=== PATIENT | female | born 2000 | race Caucasian/White ===

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

== ENCOUNTER → 2021-01-22 10:19 | Outpatient (CLI) | payer MEDICAID, SELFPAY ==
[2020-07-08 12:27] VITALS: BMI 33.7
--- NOTE | 2021-01-22 10:23 | RAD_ITS ---
STUDY: X-RAY - THORACIC SPINE REASON FOR EXAM: Female, 20 years old. PAIN TECHNIQUE: 2 view(s) of the thoracic spine were obtained. COMPARISON: None. FINDINGS: Normal kyphosis of the thoracic spine. There is no substantial scoliosis. Normal thoracic vertebrae and endplates. Normal disc space heights. There is no acute fracture. The soft tissue structures are unremarkable. RAD/Thoracic Spine 2 Views IMPRESSION: Normal x-ray examination of the thoracic spine. Electronically Signed: Seferino Ozuna MD at 17:19 EDT , Service support ,
--- NOTE | 2021-01-22 10:23 | RAD_ITS ---
STUDY: X-RAY - LUMBAR SPINE REASON FOR EXAM: Female, 20 years old. PAIN TECHNIQUE: 5 view(s) of the lumbar spine were obtained. COMPARISON: None FINDINGS: Normal lumbar lordosis. There is no substantial scoliosis. There is a normal alignment of the vertebrae. Normal vertebral bodies and endplates. There is partial sacralization of the left side of L5. Normal disc space heights. There is no demonstrated fracture. The soft tissue structures are unremarkable. RAD/L/S Spine Min 4 Views IMPRESSION: No fracture. Disc spaces are well-preserved. Electronically Signed: Seferino Ozuna MD at 17:23 EDT , Service support ,
[2021-01-22 12:54] LABS: Absolute Lymphocyte Count 1.62 X10^3/uL (0.83-4.51); Absolute Neutrophil Count 3.2 X10^3/uL (2.0-7.7); Basophil# 0.05 X10^3/uL; Basophil% 0.9 % (0-1); Eosinophil# 0.09 X10^3/uL; Eosinophils% 1.7 % (0-5); Hematocrit 42.8 % (37-47); Hemoglobin 14.3 g/dL (12.0-15.0); Lymphocyte # 1.62 X10^3/ul (0.83-4.51); Lymphocyte % 29.9 % (19-41); Mean Corp Hgb Conc 33.4 g/dL (32-36); Mean Corpuscular Hgb 29.6 pg (27.0-32.0); Mean Corpuscular Volume 88.6 fL (81-99); Mean Platelet Vol. 10.3 fl (6.2-12.0); Monocyte# 0.47 X10^3/uL; Monocyte% 8.7 % (0-10); NRBC Flagged by Analyzer 0 % (0-5); Neutrophil # 3.17 X10^3/uL (2.7-7.7); Neutrophil % 58.6 % (47-70); Platelet Count 252 K/mm3 (150-450); RBC Distribution Width CV 11.9 % (11.6-14.6); RBC Distribution Width SD 38.4 fl (35.1-43.9); Red Blood Count 4.83 M/mm3 (4.2-5.4); White Blood Count 5.4 K/mm3 (4.4-11.0)
[2021-01-22 13:22] LABS: ALB/GLOB Ratio 1.2 RATIO (0.9-2.4); AST(SGOT) 14 U/L (15-37); Alanine Aminotransfer ALT/SGPT 23 U/L (13-56); Albumin, Serum 4.1 g/dL (3.2-5.0); Alkaline Phosphatase 22 U/L (45-117); Anion Gap 9 (5-15); BUN 11 mg/dL (7-18); Calcium,Total 9.6 mg/dL (8.5-10.1); Chloride 106 mmol/L (98-107); Creatinine, Serum 0.85 mg/dL (0.55-1.02); EST Glomerular Filtration Rate 91 mL/min (>60); Est Glom Filt Rate - Afr Amer 110 mL/min (>60); Globulin 3.4 g/dL (2.2-4.2); Glucose 90 mg/dL (74-106); Magnesium 1.9 mg/dL (1.6-2.6); Potassium 4.1 mmol/L (3.5-5.1); Protein, Total 7.5 g/dL (6.4-8.2); Sodium Level 139 mmol/L (136-145)
== END ==
PROVIDERS: PCP Family Medicine; Referring Provider Family Medicine; Visit Provider Family Medicine
DX: M54.9 Dorsalgia, unspecified (principal); R19.7 Diarrhea, unspecified
CPT/HCPCS: 36415; 72070; 72110; 80053; 83735; 85025

== ENCOUNTER 2021-04-10 10:55 | Day surgery (SDC) | payer MEDICAID, SELFPAY ==
[2021-04-10 11:17] VITALS: BP 129/71; PULSE 84; RESP 14; TEMP 36.9; O2SAT 100; BMI 33.0
[2021-04-10 11:18] LABS: Internal QC Validated? YES +Cl - CLEAR BKGD; Pregnancy, Urine Negative Negative
[2021-04-10] MEDS: Lactated Ringers 1,000 ML 100 ML IV (11:23)
--- NOTE | 2021-04-10 12:00 | EGD_PTH ---
PATIENT: CLARISSA NOLASCO LOC: EN U#:[id number] AGE/SX: 20/F ROOM: RE04/10/[address]: Dr. Kelton Melton DO : 2000 BED: DIS: 04/10/2021 SPEC #: [id number] RECD: 04/10/21 14:36 STATUS: ZOE REIla #: [id number] OPAL: 04/10/21 12:[address]: Kelton Melton DEPT: SURGICAL PATHOLOGY RECD BY: Mike Woodard ENTERED: 04/11/21 12:08 SP TYPE: EGD BIOPSY OT DR: Dr. Bill Cohen MD Tissues: A - Gastric mucous membrane B - Duodenum, NOS C - Esophagus, NOS Procedures: Special Stain Group II Surgery Specimen Level IV Alcian Blue/PAS (control) HEADER OPERATION: EGD ([facility] [place]) PRE-OP DIAGNOSIS: Abdominal pain, nausea TISSUE SUBMITTED: A ? Antrum biopsy for H. pylori and path, B ? Duodenum biopsy, C ? Distal esophagus biopsy MICROSCOPIC DIAGNOSIS A. Antrum, biopsy: Mild gastritis. See microscopic description and comment. B. Duodenum, biopsy: Fragments of duodenal mucosa with congestion, hemorrhage and Jasvir gland hyperplasia. C. Distal esophagus, biopsy: Fragments of gastroesophageal mucosa with mild to moderate chronic inflammation. Intestinal metaplasia (goblet cell metaplasia) not identified. See comment. SJ:rodney 04/12/2021 COMMENT A. The results of immunohistochemistry for Helicobacter pylori will be reported separately ([id number]). C. Alcian blue/PAS stain with matched control is used in the evaluation of the specimen. MICROSCOPIC DESCRIPTION Slides are reviewed. A. The specimen shows fragments of gastric mucosa with chronic inflammatory cell infiltrates in the lamina propria consisting of lymphocytes and plasma cells, consistent with mild chronic gastritis. GROSS DESCRIPTION A - Received in fixative is one container labeled with the patient's name and designated antral biopsy. The specimen consists of one irregular fragment of light grewal soft tissue that measures 0.3 x 0.3 x 0.1 cm. The specimen is totally submitted in one cassette. B - Received in fixative is one container labeled with the patient's name and designated duodenum biopsy. The specimen consists of multiple irregular fragments of light grewal soft tissue that in aggregate measure 0.6 x 0.2 x 0.1 cm. The specimen is totally submitted in one cassette. C - Received in fixative is one container labeled with the patient's name and designated distal esophagus. The specimen consists of multiple irregular fragments of light grewal soft tissue that in aggregate measure 1 x 0.3 x 0.1 cm. The specimen is totally submitted in one cassette. / AM:rodney 04/11/21 TC:3 CPT: 83097 x3, 61749
--- NOTE | 2021-04-10 12:00 | IMM_PTH ---
PATIENT: CLARISSA NOLASCO LOC: EN U#:[id number] AGE/SX: 20/F ROOM: RE04/10/[address]: Dr. Kelton Melton DO : 2000 BED: DIS: 04/10/2021 SPEC #: [id number] RECD: 04/11/21 12:15 STATUS: ZOE REIla #: [id number] OPAL: 04/10/21 12:[address]: Kelton Melton DEPT: IMMUNOHISTOCHEMISTRY RECD BY: Aura Barker ENTERED: 04/11/21 12:15 SP TYPE: IMMUNO OTHR DR: Dr. Bill Cohen MD Tissues: A - Stomach, NOS Procedures: H Pylori (initial) PHYSICIAN & INSTITUTION [place] [id number] SPECIMEN INFORMATION: Tissue Source: A ? Antrum biopsy Clinical Info: Abdominal pain, nausea Specimen Number: [id number] CPT code: 29615 METHODOLOGY: Deparaffinized sections of prefer/formalin-fixed tissue or PAP/DQ stained slides are incubated with monoclonal/polyclonal antibodies/oligonucleotide probes. Localization is made via biotin free immunoperoxidase method. Appropriate controls are performed and reacted as expected. Results on target cell population are indicated in the following table: RESULTS: ANTIBODY / CLONE RESULT Block A H Pylori (polyclonal) negative These tests were developed and their performance characteristics determined by [facility]. They may not have been cleared or approved by the [place]. Food and Drug Administration. The FDA has determined that such clearance or approval is not necessary. INTERPRETATION: A. Antrum biopsy: Negative for Helicobacter pylori organisms. SJ:rodney 04/12/2021
--- NOTE | 2021-04-10 12:07 | PCM.HP.STD ---
HPI - General HPI Narrative CLARISSA NOLASCO, is a 20 F who presentsHPI Chief Complaint: Nausea and heartburn Details: CLARISSA NOLASCO, is a 20 F who presents to the office today for further evaluation of nausea. She says it has been going on for 2 months. It started around January with increased nausea and abdominal discomfort, occurs daily with some days being constant and others intermittent. Bloating occurs on occasion without link to nausea. Heartburn noted mostly during the night occuring mostly during the night and 3 times a week during the day with some food triggers noted. Denies vomiting, constipation and diarrhea. Has not identified a specific trigger, sometimes occurs after a meal but not consistently. PCP prescribed ondansentron with provides relief for 1-2 hours. Started wellbutrin for the first time in August 2020 and PCP stopped during the first three weeks of February to trial if this reduced nausea. Minimal effectiveness and restarted late February. Marijuana use daily 3-4 times a week. ROS Const Constitutional: Positive for fatigue and weight change Eyes Eyes: Positive for blurry vision and irritation ENT ENT: Positive for ear or mastoid pain and nasal congestion; No abnormal hearing, tongue swelling or throat swelling Resp Respiratory: No cough or shortness of breath Cardio Cardiology: Positive for shortness of breath (with exertion) Gastro GI: Positive for bloating, heartburn and nausea/dyspepsia Genitourinary-Female: No difficulty urinating or burning urination Musc Musculoskeletal: Positive for joint pain and back pain Skin Skin: No hair loss in leg, yellowing of the eye, itchy eyes, rash, skin ulcer or skin swelling Neuro Neurology: No abnormal hearing, abnormal movements, confusion, unsteady gait/balance or memory loss Psych Psychiatric: Positive for anxiety, No confusion, Positive for depression, No memory loss, Positive for inattentiveness and Positive for Temper Tantrums Endo Endocrine: Positive for fatigue and weight change Aller/Imm Allergy/Immunologic: No itchy eyes, throat swelling or tongue swelling Teo/Lymp Hematologic/Lymphatic: No easy bleeding, easy bruising or enlarged lymph nodes Exam Const General: cooperative and comfortable Nutritional Appearance: average body habitus and well nourished HENMT Head: normal to inspection Ears: hearing grossly normal bilaterally Nose: external nose normal Face and sinus: normal facial exam Mouth: oral mucosae normal Throat: posterior oropharynx normal Eyes General: appearance normal, both eyes and all related structures Neck Neck: normal visual inspection Chest Chest palpation & inspection: normal inspection of the chest and normal palpation of entire chest wall Resp Effort & Inspection: normal respiratory effort Auscultation: Bilateral: Clear to Auscultation Cardio Palpation: normal PMI Rate: regular rate Rhythm: regular rhythm GI Inspection: normal to inspection Auscultation: normal bowel sounds Percussion: normal to percussion Palpation: no hepatosplenomegaly Skin General: no rashes or lesions noted Neuro General: patient alert Extrem General: normal to inspection Psych Affect: normal affect Quality Reporting Tobacco Screening ([facility] 138) Smoking Status: Never smoker Assessment and Plan Assessment and Plan (1) Abdominal pain: Status: Acute Plan - Dr. Melara Friend, DO: She will undergo evaluation of the upper GI tract to look for signs of delayed gastric emptying, gastritis, esophagitis, duodenitis. She was explained alternatives, risk, benefits including not withstanding bleeding, infection, sepsis, perforation, need emergent or . She would have an ASA 1. Coding Level of Care Code Off vis,new,level 4 Diagnoses Abdominal pain R10.9 This is an updated H&P from previous office visit. Nothing is changed since she was seen in the office. [facility] Medical History (Updated 04/05/21 @ 14:10 by Krystina Robbins) Alcohol use Anemia Anxiety Back pain Chest pain Chronic headaches Depression Heartburn History of emotional problems IBS (irritable bowel syndrome) Marijuana use Osteochondral defect of ankle Seasonal allergies Shortness of breath on exertion Wears contact lenses Home Medications etonogestrel 68 mg subdermal implant 1 implant SUBDERMAL ONCE 07/08/20 [History Last Taken 04/09/21] fluticasone propionate 50 mcg/actuation nasal spray,suspension 1 spray INTRANASAL DAILY PRN 07/08/20 [History Last Taken 04/09/21] bupropion HCl 150 mg 24 hr tablet, extended release 150 mg PO DAILY tab 03/08/21 [History Last Taken 04/09/21] Allergy/AdvReac Type Severity Reaction Status Date / Time No Known Allergies Allergy Verified 04/05/21 14:03 Family History Father Alcoholism Anxiety Depression Grandfather Alcoholism Mother Anxiety Arthritis Hypertension High cholesterol Myocardial infarction, Onset Age: 40 Depression Grandmother Breast cancer Ovarian cancer Surgical History (Updated 04/05/21 @ 14:10 by Krystina Robbins) Hx of oral surgery Hx of tonsillectomy Social History Smoking Status: Never smoker alcohol intake: current alcohol intake frequency: holidays/special occasions only substance use type: marijuana what type of physical activity do you participate in: none Vital Signs Vital Signs Vital Signs: 04/10/21 11:17 Temperature 98.4 F Temperature Source Temporal Pulse Rate 84 Respiratory Rate 14 Respiratory Pattern Normal Blood Pressure 129/71 H Blood Pressure Mean 90 Blood Pressure Source Monitor Blood Pressure Position Sitting Blood Pressure Location Left Arm Pulse Ox 100 Oxygen Delivery Method Room Air Weight Weight: 198 lb 12.8 oz Body Mass Index (BMI) 33.0 Results Lab / Micro Data Labs: Laboratory Results - last 24 hr 04/10/21 11:07: Urine Test Negative
--- NOTE | 2021-04-10 12:33 | OP.EGD_ITS ---
Patient Name: Brandi Zhao Procedure Date: 04/10/2021 11:41 AM Date of : 2000 Age: 20 Procedure: Upper GI endoscopy Indications: Epigastric abdominal pain Providers: Kelton Melton DO Medicines: Monitored Anesthesia Care Patient Profile: This is a 20 year old female. Refer to note in patient chart for documentation of history and physical. Patient has symptoms. Complications: No immediate complications. Procedure: Pre-Anesthesia Assessment: - Prior to the procedure, a History and Physical was performed, and patient medications and allergies were reviewed. The patient is competent. The risks and benefits of the procedure and the sedation options and risks were discussed with the patient. All questions were answered and informed consent was obtained. Patient identification and proposed procedure were verified by the physician in the pre-procedure area. Mental Status Examination: alert and oriented. Airway Examination: normal oropharyngeal airway and neck mobility. Respiratory Examination: clear to auscultation. CV Examination: normal. Prophylactic Antibiotics: The patient does not require prophylactic antibiotics. Prior Anticoagulants: The patient has taken no previous anticoagulant or antiplatelet agents. ASA Grade Assessment: II - A patient with mild systemic disease. After reviewing the risks and benefits, the patient was deemed in satisfactory condition to undergo the procedure. The anesthesia plan was to use moderate sedation / analgesia (conscious sedation). Immediately prior to administration of medications, the patient was re-assessed for adequacy to receive sedatives. The heart rate, respiratory rate, oxygen saturations, blood pressure, adequacy of pulmonary ventilation, and response to care were monitored throughout the procedure. The physical status of the patient was re-assessed after the procedure. After obtaining informed consent, the endoscope was passed under direct vision. Throughout the procedure, the patient's blood pressure, pulse, and oxygen saturations were monitored continuously. The gastroscope was introduced through the mouth, and advanced to the second part of duodenum. The upper GI endoscopy was accomplished without difficulty. The patient tolerated the procedure well. Moderate Sedation: Moderate (conscious) sedation was administered by the endoscopy nurse and supervised by the endoscopist. The patient's oxygen saturation, heart rate, blood pressure and response to care were monitored. Scope In: 12:21:19 PM Scope Out: 12:27:09 PM Total Procedure Duration Time 0 hours 5 minutes 50 seconds Findings: LA Grade A (one or more mucosal breaks less than 5 mm, not extending between tops of 2 mucosal folds) esophagitis with no bleeding was found. Biopsies were taken with a cold forceps for histology. Verification of patient identification for the specimen was done. Estimated blood loss was minimal. A small hiatal hernia was present. Localized mild inflammation characterized by congestion (edema) was found in the gastric antrum. Biopsies were taken with a cold forceps for histology. Verification of patient identification for the specimen was done. Estimated blood loss: none. Patchy mild inflammation characterized by congestion (edema) was found in the duodenal bulb. Biopsies were taken with a cold forceps for histology. Verification of patient identification for the specimen was done. Estimated blood loss was minimal. Impression: - LA Grade A reflux esophagitis. Biopsied. - Small hiatal hernia. - Gastritis. Biopsied. - Duodenitis. Biopsied. - LA Grade A reflux esophagitis. Biopsied. - Gastritis. Biopsied. - Small sliding hiatal hernia. - Duodenitis. Biopsied. Recommendation: - Discharge patient to home. - Resume previous diet. - Continue present medications. - Await pathology results. - Repeat upper endoscopy in 1 year for surveillance. - Return to GI office in 2 weeks. Procedure Code(s): --- Professional --- 00815, Esophagogastroduodenoscopy, flexible, transoral; with biopsy, single or multiple CPT copyright 2017 [employer]. All rights reserved. The codes documented in this report are preliminary and upon surgery nurse review may be revised to meet current compliance requirements. Kelton Melton DO 04/10/2021 12:33:21 PM This report has been signed electronically. Number of Addenda: 1 Note Initiated On: 04/10/2021 11:41 AM Addendum Number: 1 Addendum Date: 03/14/2022 4:07:19 PM MAC was used instead of moderate sedation for this patient. Kelton Melton DO 03/14/2022 4:07:24 PM This report has been signed electronically.
--- NOTE | 2021-04-10 12:33 | OP.CCLET_ITS ---
03/14/2022 Bill Cohen Md Re : Upper GI endoscopy procedure for Brandi Zhao Dear Noel This procedure was performed on Saturday, April 10, 2021. My impressions and recommendations are as follows: Impressions : - LA Grade A reflux esophagitis. Biopsied. - Small hiatal hernia. - Gastritis. Biopsied. - Duodenitis. Biopsied. - LA Grade A reflux esophagitis. Biopsied. - Gastritis. Biopsied. - Small sliding hiatal hernia. - Duodenitis. Biopsied. Recommendations : - Discharge patient to home. - Resume previous diet. - Continue present medications. - Await pathology results. - Repeat upper endoscopy in 1 year for surveillance. - Return to GI office in 2 weeks. My findings are described in the full procedure note, which is enclosed. If I can be of further assistance, please feel free to contact me at . Sincerely, Kelton Melton, 04/10/2021 12:33:21 PM This report has been signed electronically.
[2021-04-10 12:35] VITALS: BP 106/74; BP 129/71; PULSE 72; RESP 16; TEMP 36; O2SAT 100
[2021-04-10 12:40] VITALS: BP 129/71; BP 97/66; PULSE 61; RESP 16; O2SAT 100
[2021-04-10 12:45] VITALS: BP 101/67; BP 129/71; PULSE 63; RESP 16; O2SAT 100
[2021-04-10 12:50] VITALS: BP 107/80; BP 129/71; PULSE 63; RESP 16; TEMP 36.1; O2SAT 100
[2021-04-10 13:20] VITALS: BP 129/71
== END 2021-04-10 13:20 ==
LOC: EN 10:59 → AC 11:00
PROVIDERS: Anesthesiology; PCP Family Medicine; Referring Provider Family Medicine; Visit Provider Internal Medicine Gastroenterology
PROC: 0DJ08ZZ Inspection of Upper Intestinal Tract, Via Natural or Artificial Opening Endoscopic (ICD-10-PCS; CPT 43235; principal; 2021-04-10 11:55)
DX: K29.80 Duodenitis without bleeding (principal); K29.70 Gastritis, unspecified, without bleeding; K21.00 Gastro-esophageal reflux disease with esophagitis, without bleeding; K44.9 Diaphragmatic hernia without obstruction or gangrene; K58.9 Irritable bowel syndrome, unspecified; F32.9 Major depressive disorder, single episode, unspecified; F41.9 Anxiety disorder, unspecified; Z79.899 Other long term (current) drug therapy
CPT/HCPCS: 43239; 81025; 88305; 88313; 88342; J7120; J2405

== ENCOUNTER → 2021-05-02 12:32 | Outpatient (CLI) | payer MEDICAID, SELFPAY ==
--- NOTE | 2021-05-02 12:34 | NM_ITS ---
CLINICAL: 20-year-old female with history of abdominal pain. SEMI-SOLID PHASE 99m Tc SULFUR COLLOID GASTRIC EMPTYING STUDY COMPARISON: None available FINDINGS: The patient was administered 1.1 mCi of 99m Tc sulfur colloid mixed with oatmeal and consumed per os. Image acquisitions in the anterior-posterior projections for a total of 60 minutes. There is prompt visualization of the stomach. There is no gastroesophageal reflux identified. The T ? linear fit was calculated to be 75 0 minutes, (Normal: 12-56 minutes). NM/Gastric Emptying Study IMPRESSION: 1. ABNORMAL 99m Tc sulfur colloid semi-solid phase (oatmeal) gastric emptying imaging examination. A. There is delayed semi-solid phase gastric emptying compared to normal controls. (Taylor et al, J Nucl Med Tech 38: 186, 2010). Electronically Signed: Jose D Dennis DO at 23:20 EDT Tel , Service support ,
== END ==
PROVIDERS: PCP Family Medicine; Referring Provider Internal Medicine Gastroenterology; Visit Provider Internal Medicine Gastroenterology
DX: R10.9 Unspecified abdominal pain (principal)
CPT/HCPCS: 78264; A9541

== ENCOUNTER 2021-08-24 11:38 | Outpatient (CLI) | payer MEDICAID, SELFPAY ==
[2021-08-24 12:47] LABS: Hemoglobin A1c 5.1 % (3.8-5.6)
[2021-08-24 12:48] LABS: Follicle Stimulating Hormone 4.8 mIU/mL; Luteinizing Hormone 4.3 mIU/mL; T4 Free Direct 0.93 ng/dL (0.76-1.46); Thyroid Stim Hormone (TSH) 0.93 uIU/mL (0.358-3.74)
[2021-08-26 08:28] LABS: Testosterone Free 3.2 pg/mL (0.0-4.2)
[2021-08-27 10:49] LABS: Prolactin 5.8 ng/mL
[2021-08-31 15:59] LABS: 17-Hydroxyprogesterone 26 ng/dL (.)
== END 2021-08-24 23:59 | disposition home or self-care (01) ==
LOC: WOBLAB 11:39
PROVIDERS: PCP Family Medicine; Visit Provider Student in an Organized Health Care Education/Training Program
DX: N92.6 Irregular menstruation, unspecified (principal)
CPT/HCPCS: 36415; 82627; 83001; 83002; 83036; 83498; 84146; 84402; 84439; 84443; 82626